=== PATIENT | male | born 1975 | race African-American/Black ===

== ENCOUNTER 2017-04-02 23:18 | Emergency (ER) | payer SELFPAY ==
[~2017-04-02] VITALS: Ht 180.3 cm; Wt 75.3 kg
[~2017-04-02 23:18] MED LIST: CLINDAMYCIN HC300 MG PO; HCTZ PO; HYDROCHLOROTHIA25 MG PO; KLONOPIN1 MG PO; PERCOCET 5/31 TABLET PO; PRINIVIL10 MG PO; SEROQUEL300 MG PO; ZESTRIL10 MG PO; ZESTRIL40 MG PO
[2017-04-03 02:56] LABS: HEMATOCRIT 48.1 % (38.0-50.0); MCH 28.9 PG (29.0-34.0); MCHC 34.3 G/DL (30.0-36.0); MCV 84.2 FL (86-99); MEAN PLAT.VOLUME 9.8 uM^3 (9.0-12.4); PLATELET COUNT 340 K/uL (156-360); RBC DIS.WIDTH-CV 13.3 % (11.8-14.6); RBC DIS.WIDTH-SD 40.9 % (39-53); RED BLOOD COUNT 5.71 M/uL (4.00-5.50); WHITE BLOOD COUNT 8.6 K/uL (4.1-10.2)
[2017-04-03 03:11] LABS: GLUCOSE 94 mg/dL (70-99)
[2017-04-03 03:15] LABS: ALKALINE PHOSPHATASE 83 IU/L (3-129); GFR ESTIMATE (CALCULATED) > 59 mL/min/
[2017-04-03 03:16] LABS: UREA NITROGEN (BUN) 17 mg/dL (9-23)
[2017-04-03 03:18] LABS: CREATINE KINASE 581 IU/L (1-294)
[2017-04-03 03:20] LABS: TROP-I INTERPRETATION NEGATIVE; TROPONIN-I < 0.01 ng/mL (0.0-0.30)
[2017-04-03 04:00] LABS: CHLORIDE 98 mEq/L (99-109); POTASSIUM 3.9 mEq/L (3.7-5.4); SODIUM 138 mEq/L (136-147)
[2017-04-03 04:03] LABS: ANION GAP 12 MEQ/L (2-14)
[2017-04-03] MEDS ORDERED: ZESTRIL40 MG PO (04:46)
[2017-04-03] MEDS ORDERED: VALIUM5 MG PO (04:46)
[2017-04-03] MEDS ORDERED: HYDROCHLOROTHIA25 MG PO (04:46)
[2017-04-03 04:58] VITALS: BP 155/99
[2017-04-03] MEDS ORDERED: PREDNISONE20 MG PO (16:46)
[2017-04-03] MEDS ORDERED: ELIMITE 5% CREA60 GM TP (16:47)
== END 2017-04-03 05:01 | disposition home or self-care (01) ==
LOC: EME 23:18
PROVIDERS: Physician Assistant
DX: M79.1 Myalgia (principal); F10.10 Alcohol abuse, uncomplicated; I10 Essential (primary) hypertension; Z76.0 Encounter for issue of repeat prescription; R21 Rash and other nonspecific skin eruption; R79.89 Other specified abnormal findings of blood chemistry
CPT/HCPCS: 80053; 81003; 82550; 84484; 85027; 93005; 99281; 99284; J1885; J2060; J7030; Q0177

== ENCOUNTER 2017-04-03 14:10 | Emergency (ER) | payer SELFPAY ==
[~2017-04-03] VITALS: Ht 180.3 cm; Wt 77.0 kg
[~2017-04-03 14:10] MED LIST changes: +VALIUM5 MG PO
[2017-04-03] MEDS ORDERED: PREDNISONE20 MG PO (16:46)
[2017-04-03] MEDS ORDERED: ELIMITE 5% CREA60 GM TP (16:47)
[2017-04-03 17:01] VITALS: BP 172/103
== END 2017-04-03 17:02 | disposition home or self-care (01) ==
LOC: EME 14:10
DX: L29.9 Pruritus, unspecified (principal); W57.XXXA Bitten or stung by nonvenomous insect and other nonvenomous arthropods, initial encounter
CPT/HCPCS: 99281; 99283

== ENCOUNTER 2017-04-06 01:45 | Emergency (ER) | payer SELFPAY ==
[~2017-04-06] VITALS: Ht 180.3 cm; Wt 78.4 kg
[~2017-04-06 01:45] MED LIST changes: +ELIMITE 5% CREA60 GM TP; +PREDNISONE20 MG PO
[2017-04-06] MEDS ORDERED: KEFLEX500 MG PO (03:16)
[2017-04-06 03:49] VITALS: BP 153/92
== END 2017-04-06 03:52 | disposition home or self-care (01) ==
LOC: EME 01:45
DX: L03.116 Cellulitis of left lower limb (principal); L30.9 Dermatitis, unspecified; I10 Essential (primary) hypertension; Z91.19 Patient's noncompliance with other medical treatment and regimen; F17.200 Nicotine dependence, unspecified, uncomplicated
CPT/HCPCS: 99281; 99284

== ENCOUNTER 2017-05-12 23:39 | Emergency (ER) | payer OTHER ==
[~2017-05-12] VITALS: Ht 180.3 cm; Wt 79.2 kg
[~2017-05-12 23:39] MED LIST changes: +KEFLEX500 MG PO
[2017-05-13] MEDS ORDERED: MEDROL DOSEPAK4 MG PO (00:43)
[2017-05-13] MEDS ORDERED: KEFLEX500 MG PO (00:43)
[2017-05-13 01:11] VITALS: BP 160/121
== END 2017-05-13 01:13 | disposition home or self-care (01) ==
LOC: EME 23:39
DX: B86 Scabies (principal); L03.125 Acute lymphangitis of right lower limb; L03.126 Acute lymphangitis of left lower limb; T36.0X5A Adverse effect of penicillins, initial encounter
CPT/HCPCS: 99281; 99283; J7512

== ENCOUNTER 2017-12-23 11:06 | Emergency (ER) | payer OTHER ==
[~2017-12-23] VITALS: Ht 180.3 cm; Wt 85.6 kg
[~2017-12-23 11:06] MED LIST changes: +MEDROL DOSEPAK4 MG PO
[2017-12-23] MEDS ORDERED: PERCOCET 5/31 TABLET PO (15:13)
[2017-12-23 15:33] VITALS: BP 131/90
== END 2017-12-23 15:37 | disposition home or self-care (01) ==
LOC: EME 11:06
DX: S02.92XA Unspecified fracture of facial bones, initial encounter for closed fracture (principal); Y00.XXXA Assault by blunt object, initial encounter; Y07.9 Unspecified perpetrator of maltreatment and neglect; I10 Essential (primary) hypertension; E11.9 Type 2 diabetes mellitus without complications; F17.200 Nicotine dependence, unspecified, uncomplicated; Z88.8 Allergy status to other drugs, medicaments and biological substances
CPT/HCPCS: 70450; 70486; 99281; 99284

== ENCOUNTER 2018-01-23 10:36 | Observation (INO) | payer OTHER ==
[~2018-01-23] VITALS: Ht 180.3 cm; Wt 83.8 kg
[2018-01-23 11:18] LABS: HEMATOCRIT 44.5 % (38.0-50.0); MCH 31.6 PG (29.0-34.0); MCV 87.9 FL (86-99); PLATELET COUNT 289 K/uL (156-360); RBC DIS.WIDTH-CV 13.5 % (11.8-14.6); RBC DIS.WIDTH-SD 43.8 % (39-53); RED BLOOD COUNT 5.06 M/uL (4.00-5.50); WHITE BLOOD COUNT 7.5 K/uL (4.1-10.2)
[2018-01-23 11:23] LABS: CHLORIDE 93 mEq/L (99-109); POTASSIUM 3.6 mEq/L (3.7-5.4); SODIUM 133 mEq/L (136-147)
[2018-01-23 11:25] LABS: GLUCOSE 237 mg/dL (70-99)
[2018-01-23 11:29] LABS: CREATININE 1.4 mg/dL (0.6-1.3); GFR ESTIMATE (CALCULATED) > 59 mL/min/ (58.99-99999)
[2018-01-23 11:30] LABS: UREA NITROGEN (BUN) 18 mg/dL (9-23)
[2018-01-23 11:38] LABS: TROP-I INTERPRETATION NEGATIVE; TROPONIN-I < 0.01 ng/mL (0.0-0.30)
[2018-01-23 12:56] LABS: D-DIMER ELISA < 150.00 ng/mLDDU (<230)
[2018-01-23] MEDS ORDERED: ONE DAILY1 EAC3 PO (14:43)
[2018-01-23 15:14] VITALS: BP 158/108
[2018-01-23 18:36] LABS: TROP-I INTERPRETATION NEGATIVE; TROPONIN-I 0.06 ng/mL (0.0-0.30)
[2018-01-23 19:51] VITALS: BP 133/86
[2018-01-24 00:18] VITALS: BP 155/97
[2018-01-24 01:04] LABS: TROP-I INTERPRETATION NEGATIVE; TROPONIN-I 0.03 ng/mL (0.0-0.30)
[2018-01-24 04:11] VITALS: BP 141/88
[2018-01-24 05:56] LABS: CHLORIDE 99 MEQ/L (99-109); SODIUM 135 MEQ/L (136-147); UREA NITROGEN (BUN) 14 mg/dL (9-23)
[2018-01-24 05:59] LABS: CREATININE 0.8 MG/DL (0.6-1.3); GFR ESTIMATE (CALCULATED) > 59 mL/min/ (58.99-99999); GLUCOSE 90 mg/dL (70-99)
[2018-01-24 07:55] VITALS: BP 132/82
[2018-01-24 08:00] VITALS: BP 137/82
[2018-01-24 10:11] LABS: HEMOGLOBIN A1c (GLYCOHEMOGLOB) 4.9 % (Below 5.7)
[2018-01-24 10:39] LABS: APPEARANCE CLEAR ((CLEAR)); BILIRUBIN NEGATIVE; BLOOD NEGATIVE; COLOR YELLOW ((YELLOW)); GLUCOSE (STRIP) NEGATIVE; KETONES 5; LEUKOCYTES NEGATIVE; NITRITE NEGATIVE; PROTEIN (STRIP) NEGATIVE; SPECIFIC GRAVITY 1.016 (1.000-1.030)
[2018-01-24] MEDS ORDERED: HYDROCHLOROTHIA25 MG PO (11:01)
[2018-01-24] MEDS ORDERED: ZESTRIL40 MG PO (11:01)
[2018-01-24 11:07] LABS: BENZODIAZEPINES, URINE SCREEN Negative (200 ng/mL)
[2018-01-24 12:17] VITALS: BP 153/87
[2018-01-24 12:21] VITALS: BP 153/89
== END 2018-01-24 13:35 | disposition home or self-care (01) ==
LOC: EME 10:36 → EDOF 12:35 → 5WEST 12:35 → ENRESERV 12:38 → EDOF 12:44 → ENRESERV 13:29 → 5WEST 15:07
PROVIDERS: Family Medicine; Hospitalist; Internal Medicine
DX: R07.9 Chest pain, unspecified (principal); N17.9 Acute kidney failure, unspecified; E87.1 Hypo-osmolality and hyponatremia; I10 Essential (primary) hypertension; R73.9 Hyperglycemia, unspecified; Z79.82 Long term (current) use of aspirin; F17.210 Nicotine dependence, cigarettes, uncomplicated
CPT/HCPCS: 71045; 71250; 80048; 80306 90; 81003; 83036; 84484; 85027; 85379; 93005; 93306; 99281; 99285; G0378; J1644; J2270; J7030; J7040